=== PATIENT | male | born 1980 | race African-American/Black ===

== ENCOUNTER 2019-10-16 11:49 | Emergency (ER) | payer OTHER ==
[~2019-10-16] VITALS: Ht 180.3 cm; Wt 94.3 kg
--- OUTSIDE RECORDS SUMMARY | 2019-10-16 11:51 | XMS REPORT ---
Author Author [facility] Organization [facility] Address Unknown Phone Unavailable Care Team Providers Care Personal Injury Specialist Name Role Phone GERBER RAMOS Unavailable Unavailable RODOLFO EPPERSON Unavailable Unavailable Problems This patient has no known problems. Allergies, Adverse Reactions, Alerts This patient has no known allergies or adverse reactions. Medications This patient has no known medications. Results Test Description Test Time Test Comments Text Results Atomic Results Result Comments CT, CHEST, WITH CONTRAST 2019-10-13 21:44:00 Reason for exam :->cpWhat is the patient's sedation requirement?->No Sedation FINAL REPORT Chest CT without contrast CLINICAL HISTORY: Chest pain or shortness of breath. TECHNIQUE: Contiguous axial images of the chest without contrast. This exam was performed according to the departmental dose optimization program which includes automated exposure control, adjustment of the mA and/or kV according to the patient size, and/or use of an iterative reconstruction technique. COMPARISON: CT chest dated 12/01/2016. FINDINGS: No lobar consolidation. Bilateral lower lobe discoid atelectasis. No suspicious pulmonary nodules. There are no pleural effusions or pneumothorax. The heart and great vessels are normal in size. No pericardial effusion. Normal origins of the coronary arteries. There is no evidence of axillary, mediastinal, or hilar lymphadenopathy. Soft tissues are unremarkable. No aggressive osseous lesions or acute fractures. Visualized abdomen is unremarkable. IMPRESSION: No acute intrathoracic process. Signed: Maude Hamlin Verified Date/Time: 10/13/2019 21:44:01 B-TYPE NATRIURETIC FACTOR (BNP) 2019-10-13 21:36:00 B-TYPE NATRIURETIC PEPTIDE (BEAKER) (test code = 700) 2 pg/mL 0-100 Stock Preparation Operator ID - CHRISTYCOMPREHENSIVE METABOLIC [id number] 21:29:00* Test Item Value Reference Range Comments TOTAL PROTEIN (BEAKER) (test code = 770) 7.7 gm/dL 6.0-8.5 ALBUMIN (BEAKER) (test code = 1145) 4.5 g/dL 3.5-5.0 ALKALINE PHOSPHATASE (BEAKER) (test code = 346) 63 U/L 30-115 BILIRUBIN TOTAL (BEAKER) (test code = 377) 1.0 mg/dL 0.1-1 .2 SODIUM (BEAKER) (test code = 381) 139 meq/L 135-148 POTASSIUM (BEAKER) (test code = 379) 3.4 meq/L 3.6-5.5 CHLORIDE (BEAKER) (test code = 382) 103 meq/L 98-106 CO2 (BEAKER) (test code = 355) 22 meq/L 20-29 BLOOD UREA NITROGEN (BEAKER) (test code = 354) 9 mg/dL 1 0-26 CREATININE (BEAKER) (test code = 358) 1.28 mg/dL 0.50-1.20 GLUCOSE RANDOM (BEAKER) (test code = 652) 88 mg/dL 70-110 CALCIUM (BEAKER) (test code = 697) 9.8 mg/dL 8.5-10.5 AST (SGOT) (BEAKER) (test code = 353) 14 U/L 5-40 ALT (SGPT) (BEAKER) (test code = 347) 19 U/L 5-50 EGFR (BEAKER) (test code = 1092) 75 mL/min/1.73 sq m ESTIMATED GFR IS NOT ACCURATE CREATININE CLEARANCE IN PREDICTING GLOMERULAR FILTRATION RATE. ESTIMATED GFR IS NOT APPLICABLE FOR DIALYSIS PATIENTS. Stock Preparation Operator ID Zaire GRIGGS [id number] 21:29:00* Test Item Value Reference Range Comments TROPONIN I (BEAKER) (test code = 397) 0.01 ng/mL 0.00-0.03 Troponin I (TnI) levels must be interpreted in the context of the presenting sym ptoms and the clinical findings. Elevated TnI levels indicate myocardial damage, but are not specific for ischemic heart disease. Elevated TnI levels are seen in patients with other cardiac conditions (including myocarditis and congestive h eart failure), and slight TnI elevations occur in patients with other conditions , including sepsis, renal failure, acidosis, acute neurological disease, and per sistent tachyarrhythmia.Stock Preparation Operator CECILIA MONTESYCBC W/PLT COUNT & AUTO DIFFERENTIAL 2019-10-13 21:08:00* Test Item Value Reference Range Comments WHITE BLOOD CELL COUNT (BEAKER) (test code = 775) 5.9 K/ L 4.0-10.0 RED BLOOD CELL COUNT (BEAKER) (test code = 761) 5.80 M/ L 4.20-5.80 HEMOGLOBIN (BEAKER) (test code = 410) 15.4 GM/DL 13.0-16.8 HEMATOCRIT (BEAKER) (test code = 411) 43.6 % 36.0-50.0 MEAN CORPUSCULAR VOLUME (BEAKER) (test code = 753) 75.2 fL 82.0-99.0 MEAN CORPUSCULAR HEMOGLOBIN (BEAKER) (test code = 751) 26.6 pg 27.0-33.0 MEAN CORPUSCULAR HEMOGLOBIN CONC (BEAKER) (test code = 752) 35.3 GM/DL 32.0-36.0 RED CELL DISTRIBUTION WIDTH (BEAKER) (test code = 412) 13.3 % 12.0-15.0 PLATELET COUNT (BEAKER) (test code = 756) 210 K/CU MM 150-43 0 MEAN PLATELET VOLUME (BEAKER) (test code = 754) 10.7 fL 6.0-11.5 NUCLEATED RED BLOOD CELLS (BEAKER) (test code = 413) 0 /100 WBC 0-0 NEUTROPHILS RELATIVE PERCENT (BEAKER) (test code = 429) 51 % LYMPHOCYTES RELATIVE PERCENT (BEAKER) (test code = 430) 37 % MONOCYTES RELATIVE PERCENT (BEAKER) (test code = 431) 9 % EOSINOPHILS RELATIVE PERCENT (BEAKER) (test code = 432) 2 % BASOPHILS RELATIVE PERCENT (BEAKER) (test code = 437) 1 % NEUTROPHILS ABSOLUTE COUNT (BEAKER) (test code = 670) 3.05 K/ L 1.80-8.00 LYMPHOCYTES ABSOLUTE COUNT (BEAKER) (test code = 414) 2.19 K/ L 1.48-4.50 MONOCYTES ABSOLUTE COUNT (BEAKER) (test code = 415) 0.53 K/ L 0.00-1.30 EOSINOPHILS ABSOLUTE COUNT (BEAKER) (test code = 416) 0.10 K/ L 0.00-0.50 BASOPHILS ABSOLUTE COUNT (BEAKER) (test code = 417) 0.06 K/ L 0.00-0.20 IMMATURE GRANULOCYTES-RELATIVE PERCENT (BEAKER) (test code = 280 1) 0 % 0-0 B-TYPE NATRIURETIC FACTOR (BNP)2019-10-12 19:24:00* Test Item Value Reference Range Comments B-TYPE NATRIURETIC PEPTIDE (BEAKER) (test code = 700) 3 pg/mL 0-100 Stock Preparation Operator ID - [id number] 19:07:00* Test Item Value Reference Range Comments TROPONIN I (BEAKER) (test code = 397) < ng/mL 0.00-0.03 Troponin I (TnI) levels must be interpreted in the context of the presenting sym ptoms and the clinical findings. Elevated TnI levels indicate myocardial damage, but are not specific for ischemic heart disease. Elevated TnI levels are seen in patients with other cardiac conditions (including myocarditis and congestive h eart failure), and slight TnI elevations occur in patients with other conditions , including sepsis, renal failure, acidosis, acute neurological disease, and per sistent tachyarrhythmia.Stock Preparation Operator ID - [id number] METABOLIC [id number] 19:04:00* Test Item Value Reference Range Comments SODIUM (BEAKER) (test code = 381) 139 meq/L 135-148 POTASSIUM (BEAKER) (test code = 379) 3.6 meq/L 3.6-5.5 CHLORIDE (BEAKER) (test code = 382) 103 meq/L 98-106 CO2 (BEAKER) (test code = 355) 24 meq/L 20-29 BLOOD UREA NITROGEN (BEAKER) (test code = 354) 8 mg/dL 1 0-26 CREATININE (BEAKER) (test code = 358) 1.19 mg/dL 0.50-1.20 GLUCOSE RANDOM (BEAKER) (test code = 652) 99 mg/dL 70-110 CALCIUM (BEAKER) (test code = 697) 10.0 mg/dL 8.5-10.5 EGFR (BEAKER) (test code = 1092) 82 mL/min/1.73 sq m ESTIMATED GFR IS NOT ACCURATE CREATININE CLEARANCE IN PREDICTING GLOMERULAR FILTRATION RATE. ESTIMATED GFR IS NOT APPLICABLE FOR DIALYSIS PATIENTS. Stock Preparation Operator ID - [id number] 19:03:00* Test Item Value Reference Range Comments D-DIMER QUANTITATIVE (BEAKER) (test code = 671) < MG/L FEU <0.50 REGARDING D-DIMER RESULTS: The 98% NPV (Negative Predictive Value) for DVT/PE ex clusion is 0.50 mg/L FEU as suggested by the school athletic director and as approved by the FDA.CBC W/PLT COUNT & AUTO [id number] 18:55:00* Test Item Value Reference Range Comments WHITE BLOOD CELL COUNT (BEAKER) (test code = 775) 5.5 K/ L 4.0-10.0 RED BLOOD CELL COUNT (BEAKER) (test code = 761) 5.65 M/ L 4.20-5.80 HEMOGLOBIN (BEAKER) (test code = 410) 15.1 GM/DL 13.0-16.8 HEMATOCRIT (BEAKER) (test code = 411) 42.6 % 36.0-50.0 MEAN CORPUSCULAR VOLUME (BEAKER) (test code = 753) 75.4 fL 82.0-99.0 MEAN CORPUSCULAR HEMOGLOBIN (BEAKER) (test code = 751) 26.7 pg 27.0-33.0 MEAN CORPUSCULAR HEMOGLOBIN CONC (BEAKER) (test code = 752) 35.4 GM/DL 32.0-36.0 RED CELL DISTRIBUTION WIDTH (BEAKER) (test code = 412) 13.5 % 12.0-15.0 PLATELET COUNT (BEAKER) (test code = 756) 198 K/CU MM 150-43 0 MEAN PLATELET VOLUME (BEAKER) (test code = 754) 10.4 fL 6.0-11.5 NUCLEATED RED BLOOD CELLS (BEAKER) (test code = 413) 0 /100 WBC 0-0 NEUTROPHILS RELATIVE PERCENT (BEAKER) (test code = 429) 59 % LYMPHOCYTES RELATIVE PERCENT (BEAKER) (test code = 430) 31 % MONOCYTES RELATIVE PERCENT (BEAKER) (test code = 431) 7 % EOSINOPHILS RELATIVE PERCENT (BEAKER) (test code = 432) 1 % BASOPHILS RELATIVE PERCENT (BEAKER) (test code = 437) 1 % NEUTROPHILS ABSOLUTE COUNT (BEAKER) (test code = 670) 3.24 K/ L 1.80-8.00 LYMPHOCYTES ABSOLUTE COUNT (BEAKER) (test code = 414) 1.73 K/ L 1.48-4.50 MONOCYTES ABSOLUTE COUNT (BEAKER) (test code = 415) 0.41 K/ L 0.00-1.30 EOSINOPHILS ABSOLUTE COUNT (BEAKER) (test code = 416) 0.05 K/ L 0.00-0.50 BASOPHILS ABSOLUTE COUNT (BEAKER) (test code = 417) 0.06 K/ L 0.00-0.20 IMMATURE GRANULOCYTES-RELATIVE PERCENT (BEAKER) (test code = 280 1) 0 % 0-0 RAD, CHEST, 1 VIEW, NON [id number] 18:50:00Reason for exam:->sobShould this be performed at the bedside?->YesFINAL REPORT TECHNIQUE: Frontal chest radiograph dated 10/12/2019. CLINICAL HISTORY: SOB COMPARISON STUDY: Chest radiographs dated 12/05/2016 IMPRESSION:Lungs are clear. No pleural effusion or pneumothorax. Cardiomediastinal silhouette is normal in size. No pulmonary edema. No fracture. Signed: Heather De Diosepadriana Verified Date/Time: 10/12/2019 18:50:53 Reading Location: [address] Radiology Reading Room TIC FUNCTION [id number] 05:12:00* Test Item Value Reference Range Comments TOTAL PROTEIN (BEAKER) (test code = 770) 7.3 gm/dL 6.0-8.5 ALBUMIN (BEAKER) (test code = 1145) 3.3 g/dL 3.5-5.0 BILIRUBIN TOTAL (BEAKER) (test code = 377) 0.7 mg/dL 0.1-1 .2 BILIRUBIN DIRECT (BEAKER) (test code = 706) 0.3 mg/dL 0.0- 0.4 ALKALINE PHOSPHATASE (BEAKER) (test code = 346) 232 U/L 30-115 AST (SGOT) (BEAKER) (test code = 353) 119 U/L 5-40 ALT (SGPT) (BEAKER) (test code = 347) 253 U/L 5-50 BASIC METABOLIC [id number] 05:09:00* Test Item Value Reference Range Comments SODIUM (BEAKER) (test code = 381) 137 meq/L 135-148 POTASSIUM (BEAKER) (test code = 379) 3.9 meq/L 3.6-5.5 CHLORIDE (BEAKER) (test code = 382) 106 meq/L 98-106 CO2 (BEAKER) (test code = 355) 20 meq/L 20-29 BLOOD UREA NITROGEN (BEAKER) (test code = 354) 14 mg/dL 1 0-26 CREATININE (BEAKER) (test code = 358) 0.95 mg/dL 0.50-1.20 GLUCOSE RANDOM (BEAKER) (test code = 652) 103 mg/dL 70-110 CALCIUM (BEAKER) (test code = 697) 9.4 mg/dL 8.5-10.5 EGFR (BEAKER) (test code = 1092) 108 mL/min/1.73 sq m ESTIMATED GFR IS NOT ACCURATE CREATININE CLEARANCE IN PREDICTING GLOMERULAR FILTRATION RATE. ESTIMATED GFR IS NOT APPLICABLE FOR DIALYSIS PATIENTS. CBC W/PLT COUNT & AUTO [id number] 05:00:00* Test Item Value Reference Range Comments WHITE BLOOD CELL COUNT (BEAKER) (test code = 775) 11.5 K/ L 4.0-10.0 RED BLOOD CELL COUNT (BEAKER) (test code = 761) 4.65 M/ L 4.20-5.80 HEMOGLOBIN (BEAKER) (test code = 410) 12.8 GM/DL 13.0-16.8 HEMATOCRIT (BEAKER) (test code = 411) 34.2 % 40.0-50.0 MEAN CORPUSCULAR VOLUME (BEAKER) (test code = 753) 73.5 fL 82.0-98.0 MEAN CORPUSCULAR HEMOGLOBIN (BEAKER) (test code = 751) 27.5 pg 27.0-33.0 MEAN CORPUSCULAR HEMOGLOBIN CONC (BEAKER) (test code = 752) 37.4 GM/DL 32.0-36.0 RED CELL DISTRIBUTION WIDTH (BEAKER) (test code = 412) 12.9 % 10.3-14.2 PLATELET COUNT (BEAKER) (test code = 756) 237 K/CU MM 150-43 0 MEAN PLATELET VOLUME (BEAKER) (test code = 754) 10.0 fL 6.5-10.5 NUCLEATED RED BLOOD CELLS (BEAKER) (test code = 413) 0 /100 WBC 0-0 NEUTROPHILS RELATIVE PERCENT (BEAKER) (test code = 429) 74 % LYMPHOCYTES RELATIVE PERCENT (BEAKER) (test code = 430) 13 % MONOCYTES RELATIVE PERCENT (BEAKER) (test code = 431) 10 % EOSINOPHILS RELATIVE PERCENT (BEAKER) (test code = 432) 2 % BASOPHILS RELATIVE PERCENT (BEAKER) (test code = 437) 1 % NEUTROPHILS ABSOLUTE COUNT (BEAKER) (test code = 670) 8.54 K/ L 1.80-8.00 LYMPHOCYTES ABSOLUTE COUNT (BEAKER) (test code = 414) 1.52 K/ L 1.48-4.50 MONOCYTES ABSOLUTE COUNT (BEAKER) (test code = 415) 1.13 K/ L 0.00-1.30 EOSINOPHILS ABSOLUTE COUNT (BEAKER) (test code = 416) 0.22 K/ L 0.00-0.50 BASOPHILS ABSOLUTE COUNT (BEAKER) (test code = 417) 0.08 K/ L 0.00-0.20 BLOOD [id number] 00:00:00* Test Item Value Reference Range Comments CULTURE (BEAKER) (test code = 1095) No growth in 5 days BLOOD [id number] 00:00:00* Test Item Value Reference Range Comments CULTURE (BEAKER) (test code = 1095) No growth in 5 days ANTI-NUCLEAR ANTIBODY (KARRI)2016-12-06 16:31:00* Test Item Value Reference Range Comments ANTI-NUCLEAR ANTIBODY (KARRI) (BEAKER) (test code = 418) Negative Negative SPUTUM CULTURE + GRAM [id number] 12:51:00* Test Item Value Reference Range Comments CULTURE (BEAKER) (test code = 1095) 4+ Normal respiratory luz elena present GRAM STAIN RESULT (BEAKER) (test code = 1123) <1+ WBCs GRAM STAIN RESULT (BEAKER) (test code = 36552) 0-5 epithelial ce lls GRAM STAIN RESULT (BEAKER) (test code = 43007) 1+ gram negative rods CBC W/PLT COUNT & AUTO [id number] 06:48:00* Test Item Value Reference Range Comments WHITE BLOOD CELL COUNT (BEAKER) (test code = 775) 11.2 K/ L 4.0-10.0 RED BLOOD CELL COUNT (BEAKER) (test code = 761) 4.79 M/ L 4.20-5.80 HEMOGLOBIN (BEAKER) (test code = 410) 12.9 GM/DL 13.0-16.8 HEMATOCRIT (BEAKER) (test code = 411) 35.1 % 40.0-50.0 MEAN CORPUSCULAR VOLUME (BEAKER) (test code = 753) 73.3 fL 82.0-98.0 MEAN CORPUSCULAR HEMOGLOBIN (BEAKER) (test code = 751) 26.9 pg 27.0-33.0 MEAN CORPUSCULAR HEMOGLOBIN CONC (BEAKER) (test code = 752) 36.8 GM/DL 32.0-36.0 RED CELL DISTRIBUTION WIDTH (BEAKER) (test code = 412) 12.9 % 10.3-14.2 PLATELET COUNT (BEAKER) (test code = 756) 244 K/CU MM 150-43 0 MEAN PLATELET VOLUME (BEAKER) (test code = 754) 10.4 fL 6.5-10.5 NUCLEATED RED BLOOD CELLS (BEAKER) (test code = 413) 0 /100 WBC 0-0 NEUTROPHILS RELATIVE PERCENT (BEAKER) (test code = 429) 73 % LYMPHOCYTES RELATIVE PERCENT (BEAKER) (test code = 430) 13 % MONOCYTES RELATIVE PERCENT (BEAKER) (test code = 431) 11 % EOSINOPHILS RELATIVE PERCENT (BEAKER) (test code = 432) 2 % BASOPHILS RELATIVE PERCENT (BEAKER) (test code = 437) 1 % NEUTROPHILS ABSOLUTE COUNT (BEAKER) (test code = 670) 8.16 K/ L 1.80-8.00 LYMPHOCYTES ABSOLUTE COUNT (BEAKER) (test code = 414) 1.50 K/ L 1.48-4.50 MONOCYTES ABSOLUTE COUNT (BEAKER) (test code = 415) 1.24 K/ L 0.00-1.30 EOSINOPHILS ABSOLUTE COUNT (BEAKER) (test code = 416) 0.23 K/ L 0.00-0.50 BASOPHILS ABSOLUTE COUNT (BEAKER) (test code = 417) 0.06 K/ L 0.00-0.20 (MANUAL DIFFERENTIAL)2016-12-06 06:48:00* Test Item Value Reference Range Comments TOTAL COUNTED (BEAKER) (test code = 1351) WBC MORPHOLOGY (BEAKER) (test code = 487) Normal PLT MORPHOLOGY (BEAKER) (test code = 486) Normal MICROCYTES (BEAKER) (test code = 965) 1+ few POLYCHROMATOPHILLIC RBCS(BEAKER) (test code = 478) 1+ few SPHEROCYTES (BEAKER) (test code = 768) 1+ few HEPATIC FUNCTION [id number] 05:59:00* Test Item Value Reference Range Comments TOTAL PROTEIN (BEAKER) (test code = 770) 7.3 gm/dL 6.0-8.5 ALBUMIN (BEAKER) (test code = 1145) 3.3 g/dL 3.5-5.0 BILIRUBIN TOTAL (BEAKER) (test code = 377) 0.7 mg/dL 0.1-1 .2 BILIRUBIN DIRECT (BEAKER) (test code = 706) 0.3 mg/dL 0.0- 0.4 ALKALINE PHOSPHATASE (BEAKER) (test code = 346) 235 U/L 30-115 AST (SGOT) (BEAKER) (test code = 353) 142 U/L 5-40 ALT (SGPT) (BEAKER) (test code = 347) 241 U/L 5-50 BASIC METABOLIC [id number] 05:54:00* Test Item Value Reference Range Comments SODIUM (BEAKER) (test code = 381) 138 meq/L 135-148 POTASSIUM (BEAKER) (test code = 379) 3.8 meq/L 3.6-5.5 CHLORIDE (BEAKER) (test code = 382) 105 meq/L 98-106 CO2 (BEAKER) (test code = 355) 22 meq/L 20-29 BLOOD UREA NITROGEN (BEAKER) (test code = 354) 12 mg/dL 1 0-26 CREATININE (BEAKER) (test code = 358) 0.94 mg/dL 0.50-1.20 GLUCOSE RANDOM (BEAKER) (test code = 652) 102 mg/dL 70-110 CALCIUM (BEAKER) (test code = 697) 9.5 mg/dL 8.5-10.5 EGFR (BEAKER) (test code = 1092) 109 mL/min/1.73 sq m ESTIMATED GFR IS NOT ACCURATE CREATININE CLEARANCE IN PREDICTING GLOMERULAR FILTRATION RATE. ESTIMATED GFR IS NOT APPLICABLE FOR DIALYSIS PATIENTS. CBC W/PLT COUNT & AUTO [id number] 05:24:00* Test Item Value Reference Range Comments WHITE BLOOD CELL COUNT (BEAKER) (test code = 775) 12.7 K/ L 4.0-10.0 RED BLOOD CELL COUNT (BEAKER) (test code = 761) 4.71 M/ L 4.20-5.80 HEMOGLOBIN (BEAKER) (test code = 410) 12.7 GM/DL 13.0-16.8 HEMATOCRIT (BEAKER) (test code = 411) 34.6 % 40.0-50.0 MEAN CORPUSCULAR VOLUME (BEAKER) (test code = 753) 73.5 fL 82.0-98.0 MEAN CORPUSCULAR HEMOGLOBIN (BEAKER) (test code = 751) 27.0 pg 27.0-33.0 MEAN CORPUSCULAR HEMOGLOBIN CONC (BEAKER) (test code = 752) 36.7 GM/DL 32.0-36.0 RED CELL DISTRIBUTION WIDTH (BEAKER) (test code = 412) 12.8 % 10.3-14.2 PLATELET COUNT (BEAKER) (test code = 756) 225 K/CU MM 150-43 0 MEAN PLATELET VOLUME (BEAKER) (test code = 754) 10.2 fL 6.5-10.5 NUCLEATED RED BLOOD CELLS (BEAKER) (test code = 413) 0 /100 WBC 0-0 NEUTROPHILS RELATIVE PERCENT (BEAKER) (test code = 429) 72 % LYMPHOCYTES RELATIVE PERCENT (BEAKER) (test code = 430) 15 % MONOCYTES RELATIVE PERCENT (BEAKER) (test code = 431) 11 % EOSINOPHILS RELATIVE PERCENT (BEAKER) (test code = 432) 2 % BASOPHILS RELATIVE PERCENT (BEAKER) (test code = 437) 0 % NEUTROPHILS ABSOLUTE COUNT (BEAKER) (test code = 670) 9.12 K/ L 1.80-8.00 LYMPHOCYTES ABSOLUTE COUNT (BEAKER) (test code = 414) 1.88 K/ L 1.48-4.50 MONOCYTES ABSOLUTE COUNT (BEAKER) (test code = 415) 1.35 K/ L 0.00-1.30 EOSINOPHILS ABSOLUTE COUNT (BEAKER) (test code = 416) 0.25 K/ L 0.00-0.50 BASOPHILS ABSOLUTE COUNT (BEAKER) (test code = 417) 0.05 K/ L 0.00-0.20 (MANUAL DIFFERENTIAL)2016-12-05 05:24:00* Test Item Value Reference Range Comments TOTAL COUNTED (BEAKER) (test code = 1351) WBC MORPHOLOGY (BEAKER) (test code = 487) Normal PLT MORPHOLOGY (BEAKER) (test code = 486) Normal ROSS CELLS (BEAKER) (test code = 474) 1+ few TEAR DROP CELLS (BEAKER) (test code = 481) 1+ few HEPATIC FUNCTION [id number] 05:14:00* Test Item Value Reference Range Comments TOTAL PROTEIN (BEAKER) (test code = 770) 7.4 gm/dL 6.0-8.5 ALBUMIN (BEAKER) (test code = 1145) 3.4 g/dL 3.5-5.0 BILIRUBIN TOTAL (BEAKER) (test code = 377) 0.8 mg/dL 0.1-1 .2 BILIRUBIN DIRECT (BEAKER) (test code = 706) 0.4 mg/dL 0.0- 0.4 ALKALINE PHOSPHATASE (BEAKER) (test code = 346) 210 U/L 30-115 AST (SGOT) (BEAKER) (test code = 353) 79 U/L 5-40 ALT (SGPT) (BEAKER) (test code = 347) 181 U/L 5-50 BASIC METABOLIC [id number] 05:03:00* Test Item Value Reference Range Comments SODIUM (BEAKER) (test code = 381) 138 meq/L 135-148 POTASSIUM (BEAKER) (test code = 379) 3.8 meq/L 3.6-5.5 CHLORIDE (BEAKER) (test code = 382) 105 meq/L 98-106 CO2 (BEAKER) (test code = 355) 23 meq/L 20-29 BLOOD UREA NITROGEN (BEAKER) (test code = 354) 10 mg/dL 1 0-26 CREATININE (BEAKER) (test code = 358) 0.96 mg/dL 0.50-1.20 GLUCOSE RANDOM (BEAKER) (test code = 652) 104 mg/dL 70-110 CALCIUM (BEAKER) (test code = 697) 9.3 mg/dL 8.5-10.5 EGFR (BEAKER) (test code = 1092) 106 mL/min/1.73 sq m ESTIMATED GFR IS NOT ACCURATE CREATININE CLEARANCE IN PREDICTING GLOMERULAR FILTRATION RATE. ESTIMATED GFR IS NOT APPLICABLE FOR DIALYSIS PATIENTS. URINALYSIS W/ [id number] 21:28:00* Test Item Value Reference Range Comments COLOR (BEAKER) (test code = 470) Yellow CLARITY (BEAKER) (test code = 469) Clear SPECIFIC GRAVITY UA (BEAKER) (test code = 468) 1.010 1 .001-1.035 PH UA (BEAKER) (test code = 467) 7.0 5.0-8.0 PROTEIN UA (BEAKER) (test code = 464) Trace Negative GLUCOSE UA (BEAKER) (test code = 365) Negative Negative KETONES UA (BEAKER) (test code = 371) Negative Negative BILIRUBIN UA (BEAKER) (test code = 462) Negative Negative BLOOD UA (BEAKER) (test code = 461) Trace Negative NITRITE UA (BEAKER) (test code = 465) Negative Negative LEUKOCYTE ESTERASE UA (BEAKER) (test code = 466) Negative Negative UROBILINOGEN UA (BEAKER) (test code = 463) 0.2 mg/dL 0.2-1 .0 BACTERIA (BEAKER) (test code = 517) Many RBC UA-MANUAL (BEAKER) (test code = 1659) <5 /HPF WBC UA-MANUAL (BEAKER) (test code = 1661) <5 /HPF SOURCE(BEAKER) (test code = 2795) RESPIRATORY PANEL [id number] 13:20:00* Test Item Value Reference Range Comments HUMAN METAPNEUMOVIRUS (BEAKER) (test code = 2683) Not detect ed Not detected, Inconclusive RHINOVIRUS (BEAKER) (test code = 2684) Not detected Not detec kofi, Inconclusive INFLUENZA A (BEAKER) (test code = 2685) Not detected Not dete cted, Inconclusive INFLUENZA A SUBTYPE H1 (BEAKER) (test code = 2686) Not detec kofi Not detected, Inconclusive INFLUENZA A SUBTYPE H3 (BEAKER) (test code = 1917) Not detec kofi Not detected, Inconclusive INFLUENZA A SUBTYPE H1-2009 (BEAKER) (test code = 3198) Not detected Not detected, Inconclusive INFLUENZA B (BEAKER) (test code = 6728) Not detected Not dete cted, Inconclusive RESPIRATORY SYNCYTIAL VIRUS (BEAKER) (test code = 5109) Not detected Not detected, Inconclusive PARAINFLUENZA VIRUS 1 (BEAKER) (test code = 2691) Not detect ed Not detected, Inconclusive PARAINFLUENZA VIRUS 2 (BEAKER) (test code = 2692) Not detect ed Not detected, Inconclusive PARAINFLUENZA VIRUS 3 (BEAKER) (test code = 2693) Not detect ed Not detected, Inconclusive PARAINFLUENZA VIRUS 4 (BEAKER) (test code = 3200) Not detect ed Not detected, Inconclusive ADENOVIRUS (BEAKER) (test code = 2694) Not detected Not detec kofi, Inconclusive CORONAVIRUS 229E (BEAKER) (test code = 3201) Not detected Not detected, Inconclusive CORONAVIRUS HKU1 (BEAKER) (test code = 3202) Not detected Not detected, Inconclusive CORONAVIRUS NL63 (BEAKER) (test code = 3203) Not detected Not detected, Inconclusive CORONAVIRUS OC43 (BEAKER) (test code = 3204) Not detected Not detected, Inconclusive BORDETELLA PERTUSSIS (BEAKER) (test code = 3205) Not detecte d Not detected, Inconclusive CHLAMYDOPHILA PNEUMONIAE (BEAKER) (test code = 3206) Not det ected Not detected, Inconclusive MYCOPLASMA PNEUMONIAE (BEAKER) (test code = 3207) Not detect ed Not detected, Inconclusive IRON, TIBC, % SAT. (WITHOUT FERRITIN)2016-12-04 10:41:00* Test Item Value Reference Range Comments IRON (BEAKER) (test code = 547) 26 ug/dL 40-160 TOTAL IRON BINDING CAPACITY (BEAKER) (test code = 769) 163 ug/dL 250-450 IRON % SATURATION (2) (BEAKER) (test code = 2590) 16 % 20-55 CBC W/PLT COUNT & AUTO [id number] 06:00:00* Test Item Value Reference Range Comments WHITE BLOOD CELL COUNT (BEAKER) (test code = 775) 12.6 K/ L 4.0-10.0 RED BLOOD CELL COUNT (BEAKER) (test code = 761) 4.85 M/ L 4.20-5.80 HEMOGLOBIN (BEAKER) (test code = 410) 13.0 GM/DL 13.0-16.8 HEMATOCRIT (BEAKER) (test code = 411) 36.0 % 40.0-50.0 MEAN CORPUSCULAR VOLUME (BEAKER) (test code = 753) 74.2 fL 82.0-98.0 MEAN CORPUSCULAR HEMOGLOBIN (BEAKER) (test code = 751) 26.8 pg 27.0-33.0 MEAN CORPUSCULAR HEMOGLOBIN CONC (BEAKER) (test code = 752) 36.1 GM/DL 32.0-36.0 RED CELL DISTRIBUTION WIDTH (BEAKER) (test code = 412) 12.9 % 10.3-14.2 PLATELET COUNT (BEAKER) (test code = 756) 192 K/CU MM 150-43 0 MEAN PLATELET VOLUME (BEAKER) (test code = 754) 10.0 fL 6.5-10.5 NUCLEATED RED BLOOD CELLS (BEAKER) (test code = 413) 0 /100 WBC 0-0 NEUTROPHILS RELATIVE PERCENT (BEAKER) (test code = 429) 75 % LYMPHOCYTES RELATIVE PERCENT (BEAKER) (test code = 430) 12 % MONOCYTES RELATIVE PERCENT (BEAKER) (test code = 431) 12 % EOSINOPHILS RELATIVE PERCENT (BEAKER) (test code = 432) 1 % BASOPHILS RELATIVE PERCENT (BEAKER) (test code = 437) 0 % NEUTROPHILS ABSOLUTE COUNT (BEAKER) (test code = 670) 9.39 K/ L 1.80-8.00 LYMPHOCYTES ABSOLUTE COUNT (BEAKER) (test code = 414) 1.49 K/ L 1.48-4.50 MONOCYTES ABSOLUTE COUNT (BEAKER) (test code = 415) 1.51 K/ L 0.00-1.30 EOSINOPHILS ABSOLUTE COUNT (BEAKER) (test code = 416) 0.12 K/ L 0.00-0.50 BASOPHILS ABSOLUTE COUNT (BEAKER) (test code = 417) 0.04 K/ L 0.00-0.20 (MANUAL DIFFERENTIAL)2016-12-04 06:00:00* Test Item Value Reference Range Comments TOTAL COUNTED (BEAKER) (test code = 1351) WBC MORPHOLOGY (BEAKER) (test code = 487) Normal PLT MORPHOLOGY (BEAKER) (test code = 486) Normal MICROCYTES (BEAKER) (test code = 965) 1+ few TARGET CELLS (BEAKER) (test code = 480) 1+ few [id number] 05:40:00* Test Item Value Reference Range Comments FERRITIN (BEAKER) (test code = 361) 1998 ng/mL 22-322 BASIC METABOLIC [id number] 05:18:00* Test Item Value Reference Range Comments SODIUM (BEAKER) (test code = 381) 139 meq/L 135-148 POTASSIUM (BEAKER) (test code = 379) 3.8 meq/L 3.6-5.5 CHLORIDE (BEAKER) (test code = 382) 104 meq/L 98-106 CO2 (BEAKER) (test code = 355) 24 meq/L 20-29 BLOOD UREA NITROGEN (BEAKER) (test code = 354) 8 mg/dL 1 0-26 CREATININE (BEAKER) (test code = 358) 1.05 mg/dL 0.50-1.20 GLUCOSE RANDOM (BEAKER) (test code = 652) 105 mg/dL 70-110 CALCIUM (BEAKER) (test code = 697) 9.3 mg/dL 8.5-10.5 EGFR (BEAKER) (test code = 1092) 96 mL/min/1.73 sq m ESTIMATED GFR IS NOT ACCURATE CREATININE CLEARANCE IN PREDICTING GLOMERULAR FILTRATION RATE. ESTIMATED GFR IS NOT APPLICABLE FOR DIALYSIS PATIENTS. HEPATIC FUNCTION [id number] 05:18:00* Test Item Value Reference Range Comments TOTAL PROTEIN (BEAKER) (test code = 770) 7.5 gm/dL 6.0-8.5 ALBUMIN (BEAKER) (test code = 1145) 3.5 g/dL 3.5-5.0 BILIRUBIN TOTAL (BEAKER) (test code = 377) 0.9 mg/dL 0.1-1 .2 BILIRUBIN DIRECT (BEAKER) (test code = 706) 0.5 mg/dL 0.0- 0.4 ALKALINE PHOSPHATASE (BEAKER) (test code = 346) 184 U/L 30-115 AST (SGOT) (BEAKER) (test code = 353) 78 U/L 5-40 ALT (SGPT) (BEAKER) (test code = 347) 187 U/L 5-50 URINE [id number] 19:37:00* Test Item Value Reference Range Comments CULTURE (BEAKER) (test code = 1095) No growth HEPATITIS PANEL, [id number] 09:55:00* Test Item Value Reference Range Comments HEPATITIS A IGM ANTIBODY (BEAKER) (test code = 498) Nonreactive Nonreactive HEPATITIS B CORE IGM ANTIBODY (BEAKER) (test code = 645) Non reactive Nonreactive HEPATITIS C ANTIBODY (BEAKER) (test code = 367) Nonreactive Nonreactive HEPATITIS B SURFACE ANTIGEN (2) (BEAKER) (test code = 2585) Nonreactive Nonreactive CBC W/PLT COUNT & AUTO [id number] 06:41:00* Test Item Value Reference Range Comments WHITE BLOOD CELL COUNT (BEAKER) (test code = 775) 12.7 K/ L 4.0-10.0 RED BLOOD CELL COUNT (BEAKER) (test code = 761) 4.81 M/ L 4.20-5.80 HEMOGLOBIN (BEAKER) (test code = 410) 12.9 GM/DL 13.0-16.8 HEMATOCRIT (BEAKER) (test code = 411) 35.8 % 40.0-50.0 MEAN CORPUSCULAR VOLUME (BEAKER) (test code = 753) 74.4 fL 82.0-98.0 MEAN CORPUSCULAR HEMOGLOBIN (BEAKER) (test code = 751) 26.8 pg 27.0-33.0 MEAN CORPUSCULAR HEMOGLOBIN CONC (BEAKER) (test code = 752) 36.0 GM/DL 32.0-36.0 RED CELL DISTRIBUTION WIDTH (BEAKER) (test code = 412) 13.1 % 10.3-14.2 PLATELET COUNT (BEAKER) (test code = 756) 167 K/CU MM 150-43 0 MEAN PLATELET VOLUME (BEAKER) (test code = 754) 10.4 fL 6.5-10.5 NUCLEATED RED BLOOD CELLS (BEAKER) (test code = 413) 0 /100 WBC 0-0 (MANUAL DIFFERENTIAL)2016-12-03 06:41:00* Test Item Value Reference Range Comments TOTAL COUNTED (BEAKER) (test code = 1351) WBC MORPHOLOGY (BEAKER) (test code = 487) Normal RBC MORPHOLOGY (BEAKER) (test code = 762) Normal LARGE PLT(BEAKER) (test code = 2156) Present HEPATIC FUNCTION [id number] 06:02:00* Test Item Value Reference Range Comments TOTAL PROTEIN (BEAKER) (test code = 770) 7.2 gm/dL 6.0-8.5 Specimen slightly hemolyzed ALBUMIN (BEAKER) (test code = 1145) 3.3 g/dL 3.5-5.0 Specimen slightly hemolyzed BILIRUBIN TOTAL (BEAKER) (test code = 377) 1.0 mg/dL 0.1-1 .2 Specimen slightly hemolyzed BILIRUBIN DIRECT (BEAKER) (test code = 706) 0.3 mg/dL 0.0- 0.4 Specimen slightly hemolyzed ALKALINE PHOSPHATASE (BEAKER) (test code = 346) 156 U/L 30-115 AST (SGOT) (BEAKER) (test code = 353) 99 U/L 5-40 Specimen slightly hemolyzed ALT (SGPT) (BEAKER) (test code = 347) 207 U/L 5-50 Specimen slightly hemolyzed BASIC METABOLIC [id number] 05:59:00* Test Item Value Reference Range Comments SODIUM (BEAKER) (test code = 381) 136 meq/L 135-148 POTASSIUM (BEAKER) (test code = 379) 4.1 meq/L 3.6-5.5 Specimen slightly hemolyzed CHLORIDE (BEAKER) (test code = 382) 104 meq/L 98-106 CO2 (BEAKER) (test code = 355) 22 meq/L 20-29 BLOOD UREA NITROGEN (BEAKER) (test code = 354) 9 mg/dL 1 0-26 CREATININE (BEAKER) (test code = 358) 1.11 mg/dL 0.50-1.20 Specimen slightly hemolyzed GLUCOSE RANDOM (BEAKER) (test code = 652) 110 mg/dL 70-110 CALCIUM (BEAKER) (test code = 697) 8.7 mg/dL 8.5-10.5 EGFR (BEAKER) (test code = 1092) 90 mL/min/1.73 sq m ESTIMATED GFR IS NOT ACCURATE CREATININE CLEARANCE IN PREDICTING GLOMERULAR FILTRATION RATE. ESTIMATED GFR IS NOT APPLICABLE FOR DIALYSIS PATIENTS. LEGIONELLA ANTIGEN, [id number] 21:53:00* Test Item Value Reference Range Comments L. PNEUMOPHILA SEROGP 1 UR AG (BEAKER) (test code = 11 56) Negative - see comment Negative for L. pneumophila serogroup 1 antigen, suggesting no recent or current infection with this serogroup. Legionellosis cannot be ruled out since other serogroups and species may cause disease. LEGIONELLA ANTIGEN, [id number] 11:57:00* Test Item Value Reference Range Comments L. PNEUMOPHILA SEROGP 1 UR AG (BEAKER) (test code = 11 56) Negative - see comment Negative for L. pneumophila serogroup 1 antigen, suggesting no recent or current infection with this serogroup. Legionellosis cannot be ruled out since other serogroups and species may cause disease. STREP PNEUMONIAE [id number] 11:57:00* Test Item Value Reference Range Comments STREP PNEUMONIAE ANTIGEN (BEAKER) (test code = 1615) P resumptive negative for pneumococcal pneumonia - see comment Presumptive negative for pneumococcal pneumonia - see commen Presumptive negative for pneumococcal pneumonia, suggesting no current or recent pneumococcal infection. Infection due to S. pneumoniae cannot be ruled out since the antigen present in the sample may be below the detection limit of the test. BASIC METABOLIC [id number] 06:13:00* Test Item Value Reference Range Comments SODIUM (BEAKER) (test code = 381) 134 meq/L 135-148 POTASSIUM (BEAKER) (test code = 379) 4.3 meq/L 3.6-5.5 Specimen slightly hemolyzed CHLORIDE (BEAKER) (test code = 382) 103 meq/L 98-106 CO2 (BEAKER) (test code = 355) 23 meq/L 20-29 BLOOD UREA NITROGEN (BEAKER) (test code = 354) 17 mg/dL 1 0-26 CREATININE (BEAKER) (test code = 358) 1.19 mg/dL 0.50-1.20 Specimen slightly hemolyzed GLUCOSE RANDOM (BEAKER) (test code = 652) 108 mg/dL 70-110 CALCIUM (BEAKER) (test code = 697) 8.5 mg/dL 8.5-10.5 EGFR (BEAKER) (test code = 1092) 83 mL/min/1.73 sq m ESTIMATED GFR IS NOT ACCURATE CREATININE CLEARANCE IN PREDICTING GLOMERULAR FILTRATION RATE. ESTIMATED GFR IS NOT APPLICABLE FOR DIALYSIS PATIENTS. HEPATIC FUNCTION [id number] 06:13:00* Test Item Value Reference Range Comments TOTAL PROTEIN (BEAKER) (test code = 770) 7.3 gm/dL 6.0-8.5 Specimen slightly hemolyzed ALBUMIN (BEAKER) (test code = 1145) 3.4 g/dL 3.5-5.0 Specimen slightly hemolyzed BILIRUBIN TOTAL (BEAKER) (test code = 377) 1.2 mg/dL 0.1-1 .2 Specimen slightly hemolyzed BILIRUBIN DIRECT (BEAKER) (test code = 706) 0.4 mg/dL 0.0- 0.4 Specimen slightly hemolyzed ALKALINE PHOSPHATASE (BEAKER) (test code = 346) 116 U/L 30-115 AST (SGOT) (BEAKER) (test code = 353) 79 U/L 5-40 Specimen slightly hemolyzed ALT (SGPT) (BEAKER) (test code = 347) 178 U/L 5-50 Specimen slightly hemolyzed CBC W/PLT COUNT & AUTO [id number] 05:53:00* Test Item Value Reference Range Comments WHITE BLOOD CELL COUNT (BEAKER) (test code = 775) 12.3 K/ L 4.0-10.0 RED BLOOD CELL COUNT (BEAKER) (test code = 761) 4.89 M/ L 4.20-5.80 HEMOGLOBIN (BEAKER) (test code = 410) 13.2 GM/DL 13.0-16.8 HEMATOCRIT (BEAKER) (test code = 411) 36.8 % 40.0-50.0 MEAN CORPUSCULAR VOLUME (BEAKER) (test code = 753) 75.3 fL 82.0-98.0 MEAN CORPUSCULAR HEMOGLOBIN (BEAKER) (test code = 751) 27.0 pg 27.0-33.0 MEAN CORPUSCULAR HEMOGLOBIN CONC (BEAKER) (test code = 752) 35.9 GM/DL 32.0-36.0 RED CELL DISTRIBUTION WIDTH (BEAKER) (test code = 412) 13.1 % 10.3-14.2 PLATELET COUNT (BEAKER) (test code = 756) 162 K/CU MM 150-43 0 MEAN PLATELET VOLUME (BEAKER) (test code = 754) 10.5 fL 6.5-10.5 NUCLEATED RED BLOOD CELLS (BEAKER) (test code = 413) 0 /100 WBC 0-0 NEUTROPHILS RELATIVE PERCENT (BEAKER) (test code = 429) 72 % LYMPHOCYTES RELATIVE PERCENT (BEAKER) (test code = 430) 15 % MONOCYTES RELATIVE PERCENT (BEAKER) (test code = 431) 13 % EOSINOPHILS RELATIVE PERCENT (BEAKER) (test code = 432) 1 % BASOPHILS RELATIVE PERCENT (BEAKER) (test code = 437) 0 % NEUTROPHILS ABSOLUTE COUNT (BEAKER) (test code = 670) 8.86 K/ L 1.80-8.00 LYMPHOCYTES ABSOLUTE COUNT (BEAKER) (test code = 414) 1.79 K/ L 1.48-4.50 MONOCYTES ABSOLUTE COUNT (BEAKER) (test code = 415) 1.54 K/ L 0.00-1.30 EOSINOPHILS ABSOLUTE COUNT (BEAKER) (test code = 416) 0.07 K/ L 0.00-0.50 BASOPHILS ABSOLUTE COUNT (BEAKER) (test code = 417) 0.04 K/ L 0.00-0.20 HIV-1 ANTIGEN WITH HIV-1/2 [id number] 14:37:00* Test Item Value Reference Range Comments HIV-1 ANTIGEN WITH HIV 1\T\2 ANTIBODY (2) (BEAKER) (te st code = 2586) Nonreactive Nonreactive LACTIC ACID, VENOUS, WHOLE [id number] 13:40:00* Test Item Value Reference Range Comments LACTATE BLOOD VENOUS (2) (BEAKER) (test code = 2872) 1.5 mmol/L 0.5-2.2 Specimen moderately hemolyzed Effective 10/18/2015: Units/Reference Range ChangeNew: 0.5-2.2 mmol/L Previous: 5 -18 mg/dLURINALYSIS W/ [id number] 12:11:00* Test Item Value Reference Range Comments COLOR (BEAKER) (test code = 470) Yellow CLARITY (BEAKER) (test code = 469) Clear SPECIFIC GRAVITY UA (BEAKER) (test code = 468) 1.025 1 .001-1.035 PH UA (BEAKER) (test code = 467) 6.0 5.0-8.0 PROTEIN UA (BEAKER) (test code = 464) 100 mg/dL Negative GLUCOSE UA (BEAKER) (test code = 365) Negative Negative KETONES UA (BEAKER) (test code = 371) Negative Negative BILIRUBIN UA (BEAKER) (test code = 462) Positive Negative BLOOD UA (BEAKER) (test code = 461) Moderate Negative NITRITE UA (BEAKER) (test code = 465) Negative Negative LEUKOCYTE ESTERASE UA (BEAKER) (test code = 466) Negative Negative UROBILINOGEN UA (BEAKER) (test code = 463) 2.0 mg/dL 0.2-1 .0 BACTERIA (BEAKER) (test code = 517) None Seen MUCUS (BEAKER) (test code = 1574) Few RBC UA-MANUAL (BEAKER) (test code = 1659) <5 /HPF WBC UA-MANUAL (BEAKER) (test code = 1661) <5 /HPF SQUAMOUS EPITHELIAL MANUAL (BEAKER) (test code = 1663) <5 /HPF SOURCE(BEAKER) (test code = 2795) BASIC METABOLIC [id number] 11:55:00* Test Item Value Reference Range Comments SODIUM (BEAKER) (test code = 381) 138 meq/L 135-148 POTASSIUM (BEAKER) (test code = 379) 3.8 meq/L 3.6-5.5 CHLORIDE (BEAKER) (test code = 382) 99 meq/L 98-106 CO2 (BEAKER) (test code = 355) 26 meq/L 20-29 BLOOD UREA NITROGEN (BEAKER) (test code = 354) 16 mg/dL 1 0-26 CREATININE (BEAKER) (test code = 358) 1.34 mg/dL 0.50-1.20 GLUCOSE RANDOM (BEAKER) (test code = 652) 118 mg/dL 70-110 CALCIUM (BEAKER) (test code = 697) 10.0 mg/dL 8.5-10.5 EGFR (BEAKER) (test code = 1092) 72 mL/min/1.73 sq m ESTIMATED GFR IS NOT ACCURATE CREATININE CLEARANCE IN PREDICTING GLOMERULAR FILTRATION RATE. ESTIMATED GFR IS NOT APPLICABLE FOR DIALYSIS PATIENTS. CBC W/PLT COUNT & AUTO [id number] 11:52:00* Test Item Value Reference Range Comments WHITE BLOOD CELL COUNT (BEAKER) (test code = 775) 15.6 K/ L 4.0-10.0 RED BLOOD CELL COUNT (BEAKER) (test code = 761) 5.83 M/ L 4.20-5.80 HEMOGLOBIN (BEAKER) (test code = 410) 15.8 GM/DL 13.0-16.8 HEMATOCRIT (BEAKER) (test code = 411) 43.8 % 40.0-50.0 MEAN CORPUSCULAR VOLUME (BEAKER) (test code = 753) 75.1 fL 82.0-98.0 MEAN CORPUSCULAR HEMOGLOBIN (BEAKER) (test code = 751) 27.1 pg 27.0-33.0 MEAN CORPUSCULAR HEMOGLOBIN CONC (BEAKER) (test code = 752) 36.1 GM/DL 32.0-36.0 RED CELL DISTRIBUTION WIDTH (BEAKER) (test code = 412) 13.1 % 10.3-14.2 PLATELET COUNT (BEAKER) (test code = 756) 188 K/CU MM 150-43 0 MEAN PLATELET VOLUME (BEAKER) (test code = 754) 10.5 fL 6.5-10.5 NUCLEATED RED BLOOD CELLS (BEAKER) (test code = 413) 0 /100 WBC 0-0 NEUTROPHILS RELATIVE PERCENT (BEAKER) (test code = 429) 81 % LYMPHOCYTES RELATIVE PERCENT (BEAKER) (test code = 430) 8 % MONOCYTES RELATIVE PERCENT (BEAKER) (test code = 431) 11 % EOSINOPHILS RELATIVE PERCENT (BEAKER) (test code = 432) 0 % BASOPHILS RELATIVE PERCENT (BEAKER) (test code = 437) 0 % NEUTROPHILS ABSOLUTE COUNT (BEAKER) (test code = 670) 12.67 K/ L 1.80-8.00 LYMPHOCYTES ABSOLUTE COUNT (BEAKER) (test code = 414) 1.17 K/ L 1.48-4.50 MONOCYTES ABSOLUTE COUNT (BEAKER) (test code = 415) 1.76 K/ L 0.00-1.30 EOSINOPHILS ABSOLUTE COUNT (BEAKER) (test code = 416) 0.01 K/ L 0.00-0.50 BASOPHILS ABSOLUTE COUNT (BEAKER) (test code = 417) 0.03 K/ L 0.00-0.20
[2019-10-16] MEDS ORDERED: ASPIRIN 81 MG CHEW TAB PO ONE (12:30)
[2019-10-16 13:00] LABS: BASOPHILS # (AUTO) 0.1 (0.0-0.1); BASOPHILS % 1.2 % (0.0-1.0); EOSINOPHILS # (AUTO) 0.1 (0.0-0.4); HEMATOCRIT 43.6 % (38.2-49.6); HEMOGLOBIN 15.3 g/dL (14.0-18.0); LYMPHOCYTES # (AUTO) 1.4 (1.0-3.2); LYMPHOCYTES % 26.8 % (18.0-39.1); MEAN CORPUSCULAR HEMOGLOBIN 26.6 pg (28-32); MEAN CORPUSCULAR HGB CONC 35.1 g/dL (31-35); MEAN CORPUSCULAR VOLUME 75.7 fL (81-99); MONOCYTES # (AUTO) 0.4 (0.2-0.8); MONOCYTES % 8.5 % (4.4-11.3); NEUTROPHILS # (AUTO) 3.1 (2.1-6.9); NEUTROPHILS % 61.5 % (38.7-80.0); PLATELET COUNT 206 x10e3/uL (140-360); RED BLOOD COUNT 5.76 x10e6/uL (4.3-5.7); RED CELL DISTRIBUTION WIDTH 13.4 % (11.7-14.4)
[2019-10-16] MEDS ORDERED: ALBUTEROL/IPRATROPIUM 3 ML NEB NEB ONE (13:00)
[2019-10-16 13:24] LABS: ALANINE AMINOTRANSFERASE 17 IU/L (0-55); ALBUMIN 4.4 g/dL (3.5-5.0); ALBUMIN/GLOBULIN RATIO 1.3 (0.8-2.0); ALKALINE PHOSPHATASE 61 IU/L (40-150); ANION GAP 16.8 mmol/L (8-16); BLOOD UREA NITROGEN 11 mg/dL (7-26); BUN/CREATININE RATIO 9 (6-25); CALCIUM 9.9 mg/dL (8.4-10.2); CARBON DIOXIDE 24 mmol/L (22-29); CHLORIDE 103 mmol/L (98-107); CREATINE KINASE 148 IU/L (30-200); CREATININE, SERUM 1.21 mg/dL (0.72-1.25); EST GLOMERULAR FILTRATION RATE > 60 ML/MIN (60-); GLUCOSE 91 mg/dL (74-118); POTASSIUM 3.8 mmol/L (3.5-5.1); SODIUM 140 mmol/L (136-145)
--- NOTE | 2019-10-16 13:37 | NUR ---
PATIENT TO ROOM 11
--- NOTE | 2019-10-16 13:52 | Diagnostic Imaging Report ---
Examination: Single AP view of the chest. COMPARISON: None. INDICATION: Shortness of breath, chest pain IMPRESSION: 1. Lines and Tubes: None 2. Lungs are grossly clear. No consolidation or effusion. 3. Cardiomediastinal silhouette is normal. Pulmonary vasculature is normal. 4. No acute bony abnormalities. Signed by: Dr. Nikolay Gupta M.D. on 10/16/2019 1:49 PM
== END 2019-10-16 15:03 | disposition home or self-care (01) ==
LOC: ER 11:49
DX: R06.09 Other forms of dyspnea (principal); K21.9 Gastro-esophageal reflux disease without esophagitis
CPT/HCPCS: 36415; 71045; 80053; 82550; 82553; 84484; 85025; 85379; 85730; 93005; 94640; 99284

== ENCOUNTER 2019-10-17 20:53 | Emergency (ER) | payer OTHER ==
[~2019-10-17] VITALS: Ht 180.3 cm; Wt 94.3 kg
--- NOTE | 2019-10-17 21:54 | Diagnostic Imaging Report ---
EXAMINATION: CHEST SINGLE (PORTABLE) INDICATION: 10/16/2019 Shortness of breath COMPARISON: None FINDINGS: AP view TUBES and LINES: None. LUNGS: Lungs are well inflated. Lungs are clear. There is no evidence of pneumonia or pulmonary edema. PLEURA: No pleural effusion or pneumothorax. HEART AND MEDIASTINUM: The cardiomediastinal silhouette is unremarkable. BONES AND SOFT TISSUES: No acute osseous lesion. Soft tissues are unremarkable. UPPER ABDOMEN: No free air under the diaphragm. IMPRESSION: No acute thoracic radiographic abnormality. Signed by: Nehemiah Khan MD on 10/17/2019 9:51 PM
== END 2019-10-17 22:04 | disposition home or self-care (01) ==
LOC: ER 20:53
DX: R06.00 Dyspnea, unspecified (principal); J30.1 Allergic rhinitis due to pollen; K21.9 Gastro-esophageal reflux disease without esophagitis
CPT/HCPCS: 71045; 99283